=== PATIENT | male | born 1970 | race Caucasian/White ===

== ENCOUNTER 2019-04-30 08:59 | Emergency (ER) | payer OTHER, SELFPAY ==
--- NOTE | ~2019-04-30 | CT_ITS ---
EXAMINATION: CT brain wo con EXAM DATE: 04/30/2019 09:59 INDICATION: Left facial droop last night, resolved. TECHNIQUE: Spiral CT of the head was performed without contrast. Axial, coronal and sagittal images were reviewed. The dose-length product (DLP) for this examination was 605.33 mGy-cm. The exposure w as tailored according to patient size, and iterative reconstruction (ASIR) was used as additional dos e reduction technique. There is no prior study for comparison. FINDINGS: There is no acute intraparenchymal hemorrhage. No evidence of intraparenchymal brain mass lesion. No evidence of acute infarction. There is no mass effect or midline shift. The ventricles are normal in size. There are no extra-axial collections. There are no acute calvarial fractures. T he orbits are unremarkable. Soft tissue is unremarkable. The visualized sinuses and mastoid air cornell ls are well aerated. IMPRESSION: 1. Normal head CT examination. Reviewed, dictated and finalized at location [facility]
[2019-04-30 09:06] VITALS: BP 161/70; PULSE 89; RESP 16; TEMP 36.6; O2SAT 100
--- NOTE | 2019-04-30 09:30 | ED.NEUROSD ---
HPI - Neuro Symptoms/Deficit General Chief Complaint: Neuro Symptoms/Deficit Stated Complaint: sore throat, lip drooping Time Seen by Provider: 04/30/19 09:27 Source: patient Mode of arrival: ambulatory Limitations: no limitations History of Present Illness HPI Narrative: Pt is a 49 y/o male who presents to the ED, from the , with c/o lt facial droop that he noticed last night. Pt states that he has had a cold since Friday (2 days ago). Pt states that the facial droop is better but the lt side of his lip is numb. Pt also notes that in the last 6 months he gets intermittent lip swelling a hives but he is unaware of the cause. He reports a sore throat and rhinorrhea. Onset (ago): day(s) (last night) Location: left face History of same: No Quality: numb and other (droop) Relieving factors: none Exacerbating factors: none Context: sudden onset Associated symptoms: other (sore throat, rhinorrhea) Related Data Home Medications Medication Instructions Recorded Confirmed No Home Medications 04/30/19 04/30/19 Allergies Allergy/AdvReac Type Severity Reaction Status Date / Time No Known Allergies Allergy Verified 04/30/19 09:12 Review of Systems Review of Systems: All systems reviewed & are unremarkable except as noted in HPI and below ENT: Reports lip swelling (lt), Reports sore throat and Reports other (rhinorrhea) Neurologic: Reports other (lt facial droop) PMFSH Past Medical History Medical History (Updated 04/30/19 @ 09:43 by Trish Tse) No significant past medical history Surgical History Surgical History (Updated 04/30/19 @ 09:43 by Trish Tse) No significant past surgical history Social History Social History (Updated 04/30/19 @ 09:43 by Trish Tse) Smoking status: Never smoker Gender identity (if verbalized by the patient): Male Exam Narrative: Exam Narrative: GENERAL: Well-appearing, well-nourished, and in no acute distress. HEAD: Normocephalic, atraumatic. EYES: PERRLA and EOMI. ENT: Nares clear, Mucous membranes moist. NECK: Supple. CHEST: Clear to auscultation. No respiratory distress. HEART: Regular rate and rhythm. No murmur heard. Normal peripheral pulses. ABDOMEN: Soft, nontender, nondistended, normal active bowel sounds. EXTREMITIES: Normal range of motion. No edema. SKIN: Warm, dry, no rash. NEURO: No focal deficits. Alert and oriented x3. PSYCH: Normal mood and affect. Course Course Emergency Course: Inform patient about his CT findings. 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 Vital Signs Vital signs: Vital Signs Temperature 36.6 C 04/30/19 09:06 Pulse Rate 89 04/30/19 09:06 Respiratory Rate 16 04/30/19 09:06 Blood Pressure 161/70 H 04/30/19 09:06 Pulse Oximetry 100 04/30/19 09:06 Temperature 36.6 C 04/30/19 09:06 Pulse Rate 89 04/30/19 09:06 Respiratory Rate 16 04/30/19 09:06 Blood Pressure 161/70 H 04/30/19 09:06 Pulse Oximetry 100 04/30/19 09:06 MDM - Neuro Symptoms/Deficit Imaging Data Radiologist's impression: ITS Impressions Head CT 04/30/19 10:02 IMPRESSION: 1. Normal head CT examination. Discharge Plan Discharge Prescriptions: No Action No Home Medications RF: 0
[2019-04-30 11:04] VITALS: BP 146/86; PULSE 91; RESP 26; TEMP 36.7; O2SAT 100
== END 2019-04-30 11:05 | disposition home or self-care (01) ==
PROVIDERS: Emergency Provider Family Medicine
DX: G51.0 Bell's palsy (principal)
CPT/HCPCS: 70450; 99284

== ENCOUNTER 2023-12-09 19:16 | Emergency (ER) | payer OTHER, SELFPAY ==
[2023-12-09 19:22] VITALS: BP 132/73; PULSE 58; RESP 20; TEMP 36.4; O2SAT 99
--- NOTE | 2023-12-09 19:40 | ED.SKABFB ---
HPI - Skin/Abscess/Foreign Bdy General Chief complaint: Skin/Abscess/Foreign Body Stated complaint: Skin Sore Time Seen by Provider: 12/09/23 19:40 Source: patient Mode of arrival: ambulatory Limitations: no limitations History of Present Illness HPI narrative: 53-year-old male presented for complaint of abscess to the right lower abdomen for about 1 week. He states this started as an infected hair, he pulled out the hair and continued to try to pull out more of the root which resulted in more redness and swelling to the site over the last week. Sometimes he removes the scab that forms and endorses small amount of drainage. He has since applied a Band-Aid to the site. Denies nausea, vomiting or fever. Related Data Allergies Allergy/AdvReac Type Severity Reaction Status Date / Time No Known Allergies Allergy Verified 12/09/23 19:45 Review of Systems Review of Systems: CONSTITUTIONAL: Denies body aches, fever, chills, or sweats. EYES: Denies visual changes, redness, or discharge. ENT: Denies rhinorrhea, congestion CARDIOVASCULAR: Denies chest pain, palpitations, or edema. RESPIRATORY: Denies cough or dyspnea. GASTROINTESTINAL: Denies abdominal pain, nausea, vomiting, or diarrhea. SKIN: per HPI MUSCULOSKELETAL: Denies back pain, joint pain, or myalgia. NEUROLOGIC: Denies headache, numbness, tingling, or weakness. [facility] Past Medical History Medical History No significant past medical history Surgical History Surgical History No significant past surgical history Social History Social History Smoking status: Never smoker Gender identity (if verbalized by the patient): Male Comments At time of signature, I have reviewed and agree with nursing past medical, surgical, social and family history unless otherwise noted. Please see nursing chart for further information. There is no relevant family history pertinent to the presenting complaint Exam Narrative: GENERAL: Well-appearing ENT: Mucous membranes moist. Oropharynx without edema, erythema or lesions. NECK: Supple. No lymphadenopathy CHEST: Clear to auscultation. HEART: Regular rate and rhythm. SKIN: Warm, dry. right lower abdomen with 1cm area of firm abscess, center is open with scant purulent drainage, mildly tender. No fluctuance. Surrounding skin approx 3cm diameter is mildly erythematous. NEURO: Alert and oriented x3. Course Course Emergency Course: Patient is aware of diagnosis, understands and agrees to treatment plan. Anticipatory guidance given. Patient agrees to follow-up as directed and is aware of reasons to seek care at the emergency department. Portions of this record may have been created with voice recognition software Level of Care: Express Care Visit Vital Signs Vital signs: Vital Signs Temperature 97.6 F 12/09/23 19:22 Pulse Rate 58 L 12/09/23 19:22 Respiratory Rate 20 12/09/23 19:22 Blood Pressure 132/73 12/09/23 19:22 Pulse Oximetry 99 12/09/23 19:22 Oxygen Delivery Room Air 12/09/23 19:22 Temperature 97.6 F 12/09/23 19:22 Pulse Rate 58 L 12/09/23 19:22 Respiratory Rate 20 12/09/23 19:22 Blood Pressure 132/73 12/09/23 19:22 Pulse Oximetry 99 12/09/23 19:22 Oxygen Delivery Room Air 12/09/23 19:22 Reviewed MDM - Skin/Abscess/Foreign Bdy MDM Narrative Medical decision making narrative: Discussed physical exam findings, no indication for I&D. Advised supportive measures and signs/symptoms to go to the ER. Pt is appropriate for outpt treatment and f/u. Differential Diagnosis Differential diagnosis: Likely abscess of skin or subcutaneous tissue, urticaria, herpes zoster, cellulitis and contact dermatitis Discharge Plan Discharge Clinical Impression: Abscess of skin or subcutaneous tissue Helga
== END 2023-12-09 19:46 | disposition home or self-care (01) ==
PROVIDERS: Emergency Provider Nurse Practitioner Family
DX: L02.211 Cutaneous abscess of abdominal wall (principal)
CPT/HCPCS: 99213; G0463